=== PATIENT | male | born 1970 | race Caucasian/White ===

== ENCOUNTER 2020-07-06 05:30 | Emergency (ER) | payer MEDICAID ==
[~2020-07-06] VITALS: Ht 172.7 cm; Wt 73.0 kg
[2020-07-06 05:34] VITALS: BP 151/86
[2020-07-06] MEDS ORDERED: ACETAMINOPHEN 325MG TABLET PO ONE (06:30)
[2020-07-06] MEDS ORDERED: DIPHENHYDRAMINE 25MG CAPSULE PO ONE (06:30)
[2020-07-06] MEDS ORDERED: BACITRACIN ZINC OINT UDPKT TOP ONE (06:30)
[2020-07-06] MEDS ORDERED: TETANUS, DIPHTHERIA, PERTUSSIS VAC/PF 0.5ML (>7YR OLD) IM ONE (06:30)
== END 2020-07-06 08:01 | disposition home or self-care (01) ==
LOC: ER 05:30
DX: M79.18 Myalgia, other site (principal); T14.8XXA Other injury of unspecified body region, initial encounter; X58.XXXA Exposure to other specified factors, initial encounter; Y93.89 Activity, other specified; Y92.89 Other specified places as the place of occurrence of the external cause; Y99.8 Other external cause status
CPT/HCPCS: 90471; 90715; 99284; Q0163